=== PATIENT | female | born 2000 | race Hispanic/Latino ===

== ENCOUNTER 2019-04-20 07:43 | Outpatient (CLI) | payer MEDICAID ==
--- NOTE | 2019-04-20 08:46 | ULT ---
LEFT BREAST ULTRASOUND: HISTORY: Focal pain in the left breast in the 1-2 o'clock region. FINDINGS: Sonographic region of pain in the 1 and 2 o'clock regions demonstrates no abnormality. IMPRESSION: Age-appropriate mammographic screening based on risk factors is recommended. POS: OFF
== END 2019-04-20 07:44 | disposition home or self-care (01) ==
LOC: BICULT 07:43
PROVIDERS: ATTEND Nurse Practitioner
DX: N64.4 Mastodynia (principal)